=== PATIENT | female | born 1950 | race Caucasian/White ===

== ENCOUNTER 2016-06-23 22:13 | Emergency (ER) | payer MEDICARE, OTHER ==
--- NOTE | 2016-06-23 22:25 | EDM.PDOC ---
ED HPI GENERAL MEDICAL PROBLEM - General Chief Complaint: Gastrointestinal Problem Stated Complaint: ABDOMINAL PAIN Time Seen by Provider: 06/23/16 22:25 Source of Information: Reports: Patient - History of Present Illness INITIAL COMMENTS - FREE TEXT/NARRATIVE: HISTORY AND PHYSICAL: History of present illness: [] Patient complains of abdominal pain waxing and waning over the last 4-5 days some food association, she was pain free throughout the day after eating spaghetti and meat saw us tonight approximately an hour later pain returned she rated 10 out of 10 epigastric pain which is currently resolved 0/10 no current symptoms fever nausea vomiting chills sweats no chest pain shortness breath headache dizziness or palpitation no bowel or urine symptoms She has recently had colonoscopy and upper endoscopy secondary to bloating and increased flatus, both were negative/normal per patient Review of systems: As per history of present illness and below otherwise all systems reviewed and negative. Past medical history: As per history of present illness and as reviewed below otherwise noncontributory. Surgical history: As per history of present illness and as reviewed below otherwise noncontributory. Social history: No reported history of drug or alcohol abuse. Family history: As per history of present illness and as reviewed below otherwise noncontributory. Physical exam: HEENT: Atraumatic, normocephalic, pupils reactive, negative for conjunctival pallor or scleral icterus, mucous membranes moist, throat clear, neck supple, nontender, trachea midline. Lungs: Clear to auscultation, breath sounds equal bilaterally, chest nontender. Heart: S1S2, regular, negative for clicks, rubs, or JVD. Abdomen: Soft, nondistended, nontender. Negative for masses or hepatosplenomegaly. Negative for costovertebral tenderness. Pelvis: Stable nontender. Genitourinary: Deferred. Rectal: Deferred. Extremities: Atraumatic, negative for cords or calf pain. Neurovascular unremarkable. Neuro: Awake, alert, oriented. Cranial nerves II through XII unremarkable. Cerebellum unremarkable. Motor and sensory unremarkable throughout. Exam nonfocal. Diagnostics: [] Lab as below Ultrasound right upper quadrant Therapeutics: [] None Impression: [] Abdominal pain-resolved Patient asymptomatic at this time Suspicious for biliary colic Definitive disposition and diagnosis as appropriate pending reevaluation and review of above. Bilateral Lower Abdomen Pain Score (Numeric/FACES): 8 - Related Data Allergies Allergy/AdvReac Type Severity Reaction Status Date / Time Sulfa (Sulfonamide Allergy Other Verified 06/23/16 22:16 Antibiotics) Home Meds: Home Meds Ascorbic Acid [Vitamin C] 1,000 mg PO DAILY 06/23/16 [History] Calcium Carbonate [Calcium] 1 tab PO DAILY 06/23/16 [History] Ergocalciferol (Vitamin D2) [Vitamin D] 800 unit PO DAILY 06/23/16 [History] Magnesium 250 mg PO DAILY 06/23/16 [History] Past Medical History Endocrine/Metabolic History: Reports: Hypothyroidism Social & Family History - Tobacco Use Smoking Status *Q: Never Smoker - Caffeine Use Caffeine Use: Reports: Coffee, Tea - Recreational Drug Use Recreational Drug Use: No ED ROS GENERAL - Review of Systems Review Of Systems: ROS reveals no pertinent complaints other than HPI. ED EXAM, GENERAL - Physical Exam Exam: See Below Course - Vital Signs Last Recorded V/S: Last Vital Signs Temp 36.6 C 06/24/16 00:03 Pulse 74 06/24/16 00:03 Resp 16 06/24/16 00:03 BP 161/81 H 06/24/16 00:03 Pulse Ox 96 06/24/16 00:03 - Orders/Labs/Meds Orders: Active Orders 24 hr Category Date Time Status EKG Documentation Completion [RC] STAT Care 06/23/16 22:24 Active Abdomen Ltd [US] Stat Exams 06/23/16 22:35 Taken Labs: Laboratory Tests 06/23/16 06/23/16 06/23/16 Range/Units 22:20 22:20 22:20 WBC 7.46 (4.0-11.0) K/uL RBC 4.54 (4.30-5.90) M/uL Hgb 13.8 (12.0-16.0) g/dL Hct 40.8 (36.0-46.0) % MCV 89.9 (80.0-98.0) fL MCH 30.4 (27.0-32.0) pg MCHC 33.8 (31.0-37.0) g/dL RDW Std Deviation 43.9 (28.0-62.0) fl RDW Coeff of Duy 13 (11.0-15.0) % Plt Count 182 (150-400) K/uL MPV 10.20 (7.40-12.00) fL Neut % (Auto) 54.7 (48.0-80.0) % Lymph % (Auto) 22.9 (16.0-40.0) % Kenton % (Auto) 7.5 (0.0-15.0) % Eos % (Auto) 14.2 H (0.0-7.0) % Baso % (Auto) 0.7 (0.0-1.5) % Neut # (Auto) 4.1 (1.4-5.7) K/uL Lymph # (Auto) 1.7 (0.6-2.4) K/uL Kenton # (Auto) 0.6 (0.0-0.8) K/uL Eos # (Auto) 1.1 H (0.0-0.7) K/uL Baso # (Auto) 0.1 (0.0-0.1) K/uL Nucleated RBC % 0.0 /100WBC Nucleated RBCs # 0 K/uL Sodium 140 (136-146) mmol/L Potassium 3.4 L (3.5-5.1) mmol/L Chloride 102 (98-110) mmol/L Carbon Dioxide 27 (21-31) mmol/L BUN 23 (6.0-23.0) mg/dL Creatinine 0.9 (0.6-1.5) mg/dL Est Cr Clr Drug Dosing 54.53 mL/min Estimated GFR (MDRD) > 60.0 ml/min Glucose 114 H (60-110) mg/dL Calcium 9.5 (8.8-10.8) mg/dL Total Bilirubin 0.3 (0.1-1.5) mg/dL AST 20 (5-40) IU/L ALT 15 (8-54) IU/L Alkaline Phosphatase 63 (40-150) Troponin I < 0.10 (0.0-0.29) NG/ML Total Protein 7.5 (6.0-8.0) g/dL Albumin 4.0 (3.4-4.8) g/dL Globulin 3.5 (2.0-3.5) g/dL Albumin/Globulin Ratio 1.1 L (1.3-2.8) Amylase 75 (10-90) U/L Lipase 69 (7-80) U/L Urine Color Urine Appearance Urine pH (5.0-8.0) Ur Specific [place] (1.001-1.035) Urine Protein (NEGATIVE) mg/dL Urine Glucose (UA) (NEGATIVE) mg/dL Urine Ketones (NEGATIVE) mg/dL Urine Occult Blood (NEGATIVE) Urine Nitrite (NEGATIVE) Urine Bilirubin (NEGATIVE) Urine Urobilinogen (<2.0) EU/dL Ur Leukocyte Esterase (NEGATIVE) Urine RBC (0-2/HPF) Urine WBC (0-5/HPF) Ur Epithelial Cells (NONE-FEW) Urine Bacteria (NEGATIVE) 06/23/16 Range/Units 22:38 WBC (4.0-11.0) K/uL RBC (4.30-5.90) M/uL Hgb (12.0-16.0) g/dL Hct (36.0-46.0) % MCV (80.0-98.0) fL MCH (27.0-32.0) pg MCHC (31.0-37.0) g/dL RDW Std Deviation (28.0-62.0) fl RDW Coeff of Duy (11.0-15.0) % Plt Count (150-400) K/uL MPV (7.40-12.00) fL Neut % (Auto) (48.0-80.0) % Lymph % (Auto) (16.0-40.0) % Kenton % (Auto) (0.0-15.0) % Eos % (Auto) (0.0-7.0) % Baso % (Auto) (0.0-1.5) % Neut # (Auto) (1.4-5.7) K/uL Lymph # (Auto) (0.6-2.4) K/uL Kenton # (Auto) (0.0-0.8) K/uL Eos # (Auto) (0.0-0.7) K/uL Baso # (Auto) (0.0-0.1) K/uL Nucleated RBC % /100WBC Nucleated RBCs # K/uL Sodium (136-146) mmol/L Potassium (3.5-5.1) mmol/L Chloride (98-110) mmol/L Carbon Dioxide (21-31) mmol/L BUN (6.0-23.0) mg/dL Creatinine (0.6-1.5) mg/dL Est Cr Clr Drug Dosing mL/min Estimated GFR (MDRD) ml/min Glucose (60-110) mg/dL Calcium (8.8-10.8) mg/dL Total Bilirubin (0.1-1.5) mg/dL AST (5-40) IU/L ALT (8-54) IU/L Alkaline Phosphatase (40-150) Troponin I (0.0-0.29) NG/ML Total Protein (6.0-8.0) g/dL Albumin (3.4-4.8) g/dL Globulin (2.0-3.5) g/dL Albumin/Globulin Ratio (1.3-2.8) Amylase (10-90) U/L Lipase (7-80) U/L Urine Color YELLOW Urine Appearance CLEAR Urine pH 7.0 (5.0-8.0) Ur Specific [place] 1.010 (1.001-1.035) Urine Protein NEGATIVE (NEGATIVE) mg/dL Urine Glucose (UA) NEGATIVE (NEGATIVE) mg/dL Urine Ketones NEGATIVE (NEGATIVE) mg/dL Urine Occult Blood NEGATIVE (NEGATIVE) Urine Nitrite NEGATIVE (NEGATIVE) Urine Bilirubin NEGATIVE (NEGATIVE) Urine Urobilinogen 0.2 (<2.0) EU/dL Ur Leukocyte Esterase NEGATIVE (NEGATIVE) Urine RBC 0-1 (0-2/HPF) Urine WBC 0-2 (0-5/HPF) Ur Epithelial Cells RARE (NONE-FEW) Urine Bacteria RARE (NEGATIVE) Departure - Departure Time of Disposition: 00:05 Disposition: Home, Self-Care 01 Condition: good Clinical Impression: Abdominal pain Forms: ED Department Discharge Additional Instructions: Avoid greasy food Followup with primary care or return if symptoms persist or worsen May consider HIDA scan with primary care The following information is given to patients seen in the emergency department who are being discharged to home. This information is to outline your options for follow-up care. We provide all patients seen in our emergency department with a follow-up referral. The need for follow-up, as well as the timing and circumstances, are variable depending upon the specifics of your emergency department visit. If you don't have a primary care physician on staff, we will provide you with a referral. We always advise you to contact your personal physician following an emergency department visit to inform them of the circumstance of the visit and for follow-up with them and/or the need for any referrals to a consulting specialist. The emergency department will also refer you to a specialist when appropriate. This referral assures that you have the opportunity for follow-up care with a specialist. All of these measure are taken in an effort to provide you with optimal care, which includes your follow-up. Under all circumstances we always encourage you to contact your private physician who remains a resource for coordinating your care. When calling for follow-up care, please make the office aware that this follow-up is from your recent emergency room visit. If for any reason you are refused follow-up, please contact the [facility] emergency department at and asked to speak to the emergency department charge nurse. - My Orders Last 24 Hours: My Active Orders 06/23/16 22:24 EKG Documentation Completion [RC] STAT 06/23/16 22:35 Abdomen Ltd [US] Stat - Assessment/Plan Last 24 Hours: My Active Orders 06/23/16 22:24 EKG Documentation Completion [RC] STAT 06/23/16 22:35 Abdomen Ltd [US] Stat
[2016-06-23 23:03] LABS: CHLORIDE,CL 102 mmol/L (98-110); SODIUM,NA 140 mmol/L (136-146)
[2016-06-24 00:41] VITALS: BP 152/80
--- NOTE | 2016-06-24 12:54 | US ---
EXAM DATE: 06/23/16 PATIENT'S AGE: 65 Patient: ESTELA KIDD Facility: [place], [place] Site . Site : 1950 Study: US Abdomen [id number] 11:33:39 PM Ordering Physician: Zuri Antony Final Report: INDICATION: ABDOMINAL PAIN TECHNIQUE: Ultrasound abdomen limited. Sonographic images of the right upper quadrant were obtained using will-scale and color Doppler images. COMPARISON: None FINDINGS: Liver: Normal in size and echotexture. No masses. No intrahepatic biliary dilatation. Gallbladder: No stones or sludge. Partially contracted. No pericholecystic fluid. Common bile duct: 3 mm. Pancreas: Obscured. Right kidney: The imaged portion is unremarkable. Vasculature: Proximal abdominal aorta and IVC are normal. IMPRESSION: Unremarkable right upper quadrant ultrasound. Dictated by Dejuan Mcgregor MD @ 06/23/2016 11:52:59 PM Dictated by: Dejuan Mcgregor MD @ 06/23/2016 23:53:20 (Electronic Signature) Report Signed by Proxy and Original Signed Document filed in the Medical Record. [facility] HOSPITALMathew
== END 2016-06-24 00:41 | disposition home or self-care (01) ==
LOC: MW.ED 22:13
DX: R10.31 Right lower quadrant pain (principal); R10.32 Left lower quadrant pain; E03.9 Hypothyroidism, unspecified; Z79.899 Other long term (current) drug therapy; Z88.2 Allergy status to sulfonamides
CPT/HCPCS: 36415; 76705; 76705-26; 80053; 81001; 82150; 83690; 84484; 85025; 87804; 93005; 99282; 99284-25

== ENCOUNTER → 2016-07-08 | Outpatient (CLI) | payer MEDICARE, OTHER | LOC: MW.CHGS 08:00 | PROVIDERS: ATTEND Surgery | DX: K82.8 Other specified diseases of gallbladder (principal) | CPT/HCPCS: 99203 ==

== ENCOUNTER 2016-07-31 09:45 | Day surgery (SDC) | payer MEDICARE, OTHER ==
[~2016-07-31 09:45] MED LIST: Lactated Ringers 1,000 ML IV SCH; Lidocaine 2% 5 ML SDV ONE; Midazolam 1 MG/ML 2 ML SDV ONE; Ondansetron 4 MG/2 ML SDV ONE; Propofol 200 MG/20 ML SDV ONE; Rocuronium 10 MG/ML 10 ML Syringe ONE; Sodium Chloride 0.9% 10 ML Syringe FLUSH PRN; Sodium Chloride 0.9% 2.5 ML Syringe FLUSH PRN; ceFAZolin 2 GM in Premix Bag 1 BAG IV ONE
[2016-07-31] MEDS ORDERED: Bupivacaine 0.5% 30 ML SDV ONE (10:07)
[2016-07-31] MEDS ORDERED: Scopolamine 1.5 MG Transdermal Patch TRDERM PRN (10:17)
[2016-07-31] MEDS ORDERED: fentaNYL 250 MCG/5 ML SDV ONE (10:17)
--- NOTE | 2016-07-31 10:22 | PCM.PREANE ---
Preanesthetic Assessment - Anesthesia/Transfusion/Family Hx Anesthesia History: Prior Anesthesia Without Reaction Other Type of Anesthesia Reaction Comment: states she woke up during her tubal ligation Family History of Anesthesia Reaction: No Transfusion History: No Prior Transfusion(s) Intubation History: Unknown - Review of Systems General: No Symptoms Pulmonary: No Symptoms Cardiovascular: No Symptoms Gastrointestinal: Abdominal pain Neurological: No Symptoms Other: Reports: None - Physical Assessment O2 Sat by Pulse Oximetry: 100 Respiratory Rate: 16 Vital Signs: Last Vital Signs Temp 36.9 C 07/31/16 10:13 Pulse 81 07/31/16 10:13 Resp 16 07/31/16 10:13 BP 155/84 H 07/31/16 10:13 Pulse Ox 100 07/31/16 10:13 Height: 1.63 m Weight: 66.224 kg ASA Class: 2 Mental Status: Alert & Oriented x3 Airway Class: Mallampati = 2 Dentition: Reports: Normal Dentition, Bridge (permanent right lower) Thyro-Mental Finger Breadths: 3 Mouth Opening Finger Breadths: 3 ROM/Head Extension: Full Lungs: Clear to auscultation, Normal respiratory effort Cardiovascular: Regular Rate, Regular Rhythm - Allergies Allergies/Adverse Reactions: Allergies Allergy/AdvReac Type Severity Reaction Status Date / Time Sulfa (Sulfonamide Allergy Other Verified 06/23/16 22:16 Antibiotics) - Blood Blood Available: No - Anesthesia Plan Pre-Op Medication Ordered: None - Acknowledgements Anesthesia Type Planned: General Anesthesia Pt an Appropriate Candidate for the Planned Anesthesia: Yes Alternatives and Risks of Anesthesia Discussed w Pt/Guardian: Yes Pt/Guardian Understands and Agrees with Anesthesia Plan: Yes PreAnesthesia Questionnaire - Past Health History Medical/Surgical History: Denies Medical/Surgical History Gastrointestinal History: Reports: GERD, Other (see below) Other Gastrointestinal History: epigastric pain, biliary dyskinesia Genitourinary History: Reports: None Musculoskeletal History: Reports: Other (see below) Other Musculoskeletal History: states was diagnosed with fibromyalgia but later was found out to have Lyme disease Neurological History: Reports: Migraines Psychiatric History: Reports: Anxiety, Depression Other Psychiatric History: "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" Endocrine/Metabolic History: Reports: Hypothyroidism Dermatologic History: Reports: Other (see below) Other Dermatologic History: rash - Infectious Disease History Infectious Disease History: Reports: None - Past Surgical History Head Surgeries/Procedures: Reports: None GI Surgical History: Reports: Appendectomy, Colonoscopy, EGD Female Surgical History: Reports: Breast reduction, Hysterectomy, Tubal ligation - SUBSTANCE USE Smoking Status *Q: Never Smoker Recreational Drug Use History: No - HOME MEDS Home Medications: Home Meds Ascorbic Acid [Vitamin C] 1,000 mg PO DAILY 06/23/16 [History] Cholecalciferol (Vitamin D3) [Vitamin D3] 1,000 units PO DAILY 07/14/16 [History ] Clobetasol [Clobetasol 0.05%] 1 applic TOP ASDIRECTED 07/14/16 [History] Hydrocodone/Acetaminophen [Hydrocodon-Acetaminophn 10-325] 1 tab PO ASDIRECTED PRN 07/14/16 [History] Lactobacillus Acidophilus [Probiotic] 1 tab PO ASDIRECTED 07/14/16 [History] - CURRENT (IN HOUSE) MEDS Current Meds: Current Medications Lactated Ringer's (Ringers, Lactated) 1,000 mls @ 125 mls/hr IV ASDIRECTED SHERRIE Last Admin: 07/31/16 10:16 Dose: 125 mls/hr Scopolamine (Transderm-Scop) 1.5 mg TRDERM Q72H PRN PRN Reason: Nausea/Vomiting Sodium Chloride (Saline Flush) 10 ml FLUSH ASDIRECTED PRN PRN Reason: Keep Vein Open Sodium Chloride (Saline Flush) 2.5 ml FLUSH ASDIRECTED PRN PRN Reason: Keep Vein Open Discontinued Medications Bupivacaine HCl (Marcaine 0.5%) Confirm Administered Dose 30 ml .ROUTE .STK-MED ONE Stop: 07/31/16 10:08 Fentanyl (Sublimaze) Confirm Administered Dose 250 mcg .ROUTE .STK-MED ONE Stop: 07/31/16 10:18 Cefazolin Sodium/Dextrose 2 gm (/ Premix) 50 mls @ 100 mls/hr IV ONETIME ONE Stop: 07/14/16 10:00 Cefazolin Sodium/Dextrose 2 gm (/ Premix) 50 mls @ 100 mls/hr IV ONETIME ONE Stop: 07/30/16 18:23 Lidocaine (Xylocaine-Mpf 2%) Confirm Administered Dose 5 ml .ROUTE .STK-MED ONE Stop: 07/31/16 09:11 Midazolam HCl (Versed 1 Mg/Ml) Confirm Administered Dose 2 mg .ROUTE .STK-MED ONE Stop: 07/31/16 09:11 Ondansetron HCl (Zofran) Confirm Administered Dose 4 mg .ROUTE .STOcsc-MED ONE Stop: 07/31/16 09:11 Propofol (Diprivan 20 Ml) Confirm Administered Dose 200 mg .ROUTE .STOcsc-MED ONE Stop: 07/31/16 09:11 Rocuronium [place] (Zemuron) Confirm Administered Dose 100 mg .ROUTE .STOcsc-MED ONE Stop: 07/31/16 09:11
[2016-07-31] MEDS ORDERED: Scopolamine 1.5 MG Transdermal Patch ONE (10:43)
[2016-07-31] MEDS ORDERED: Dexamethasone 4 MG/ML 5 ML MDV ONE (10:43)
[2016-07-31] MEDS ORDERED: HYDROmorphone 2 MG/ML Syringe ONE (10:59)
[2016-07-31] MEDS ORDERED: Neostigmine Methylsulfate 1 MG/ML 5 ML Syringe ONE (11:18)
[2016-07-31] MEDS ORDERED: Ketorolac 30 MG/ML SDV ONE (11:19)
--- NOTE | 2016-07-31 11:54 | PCM.OPNOTE ---
- General Post-Op/Procedure Note Date of Surgery/Procedure: 07/31/16 Operative Procedure(s): Laparoscopic cholecystectomy Findings: Normal appearing gallbladder Pre Op Diagnosis: Biliary colic Post-Op Diagnosis: same Anesthesia Technique: MAC Primary Surgeon: Kavita Swanson Pathology: gallbladder Fluid Replacement, Intraop: 1,800 Output, Urine Amount: 75 EBL in mLs: 10 Condition: Good
[2016-07-31] MEDS ORDERED: Acetaminophen/oxyCODONE 325-10 MG Tab PO PRN (13:03)
[2016-07-31] MEDS ORDERED: Acetaminophen/oxyCODONE 325-10 MG Tab ONE (13:07)
--- NOTE | 2016-07-31 16:11 | PCM48HPAN ---
Post Anesthesia Note - EVALUATION WITHIN 48HRS OF ANESTHETIC Vital Signs in Normal Range: Yes Patient Participated in Evaluation: Yes Respiratory Function Stable: Yes Airway Patent: Yes Cardiovascular Function Stable: Yes Hydration Status Stable: Yes Pain Control Satisfactory: Yes Nausea and Vomiting Control Satisfactory: Yes Mental Status Recovered: Yes
[2016-07-31 16:19] VITALS: BP 137/82
--- NOTE | 2016-07-31 21:29 | OR ---
SURGEON: LUCIANA HASKINS MD DATE OF PROCEDURE: 07/31/2016 PREOPERATIVE DIAGNOSIS: Biliary colic. POSTOPERATIVE DIAGNOSIS: Biliary colic. PROCEDURE PERFORMED: Laparoscopic cholecystectomy. ANESTHESIA: General endotracheal anesthesia. FLUIDS: 1800 mL crystalloid. ESTIMATED BLOOD LOSS: 10 mL. URINE OUTPUT: 75 mL. FINDINGS: Normal-appearing gallbladder. COMPLICATIONS: None. INDICATIONS: The patient is a 65-year-old female, who presents with abdominal pain. She has undergone an extensive workup, including EGD and colonoscopy as well as right upper quadrant ultrasound all of which were normal. The patient had a HIDA scan performed that showed a decreased ejection fraction. Given the constellation of her symptoms, it was felt that her abdominal pain was due to biliary colic. The patient and I discussed removal of her gallbladder as a treatment option. We discussed both the laparoscopic and open cholecystectomy procedure. We discussed the expected perioperative course. Should I be unable to perform the procedure safely laparoscopically, I would be converting it to open. We discussed the risks, including bleeding, infection, or damage to surrounding structures. The patient verbalized understanding and wished to proceed. PROCEDURE IN DETAIL: The patient was brought into the operating room and placed on the operating room table in supine position. A time-out was completed verifying the patient's name, age, date of , allergies, and procedure to be performed. General endotracheal anesthesia was then induced. A Lee catheter was placed and the left arm was tucked at the patient's side. The patient's abdomen was then prepped and draped in the usual standard fashion. I used 0.5% Marcaine to anesthetize all of my incision sites during the case. A 3 cm infraumbilical incision was made along the midline. I then used cautery to dissect down to the subcutaneous fat. S retractors were used to dissect down to the level of fascia. The fascia was grasped with 2 Viridiana's and incised using a Metzenbaum scissors. I then grasped the peritoneum using a tonsil and elevated that. It was sharply incised with the Metzenbaum scissors thereby gaining access into the abdomen. A 12 mm blunt tip trocar was then entered into abdomen and the abdomen insufflated to a pressure of 13 mmHg. A 5 mm 30 degree scope was then placed through the trocar in the area underneath and trocar placement was inspected for any damage. No damage was noted to surrounding structures. Three more 5-mm ports were placed under direct visualization in the following locations; right epigastric area, right subcostal margin along the midclavicular line, and the right flank. I then grasped the top of the gallbladder using the atraumatic grasper through my right lateral port and lifted the gallbladder above the dome of the liver. This exposed the infundibulum adequately. I then incised the peritoneum overlying the infundibulum and used blunt dissection to dissect out the cystic artery and duct. Prior to doing anything with these structures, I dissected the proximal half of the gallbladder off the gallbladder fossa. This helped me to achieve my critical view. I then doubly clipped and ligated the cystic duct and artery. The gallbladder was then dissected further off the gallbladder fossa. The gallbladder was then placed in an EndoCatch bag and removed through the infraumbilical port site. The 12 mm port was then replaced back into the abdomen and I inspected the liver bed for any bleeding. There was some bleeding along the gallbladder fossa mainly centered along the liver edge. Using cautery and Endo Avitene coating product, I was able to achieve hemostasis. The abdomen was irrigated with 1 L of normal saline until it ran clear. The liver bed was reinspected for hemostasis and hemostasis was felt to be achieved. A 5-mm ports were then removed under direct visualization and the abdomen allowed to desufflate. The 12 mm port site was then removed. The fascia at the 12 mm port site was closed with [id number] Vicryl sutures. The overlying tissues were closed with interrupted 3-0 Vicryl and the subcutaneous fat and a running 4-0 Monocryl suture to close the skin. The 5-mm port sites were then closed using interrupted 4-O Monocryl. Steri-Strips and sterile dressings were applied. All counts were complete and correct at the end of the case. The patient was awoken and taken to the PACU in stable condition. MOIZ ALVAREZ /[id number]
== END 2016-07-31 15:50 | disposition home or self-care (01) ==
LOC: MW.SDS 09:45
PROVIDERS: ATTEND Surgery
PROC: 0FT44ZZ Resection of Gallbladder, Percutaneous Endoscopic Approach (ICD-10-PCS; principal; 2016-07-31)
DX: K81.1 Chronic cholecystitis (principal); Z88.1 Allergy status to other antibiotic agents; Z88.2 Allergy status to sulfonamides; Z91.040 Latex allergy status; Z79.899 Other long term (current) drug therapy; Z98.51 Tubal ligation status; Z90.49 Acquired absence of other specified parts of digestive tract; Z90.710 Acquired absence of both cervix and uterus; Z98.890 Other specified postprocedural states
CPT/HCPCS: 47562; A9270; J1100; J1170; J2250; J2405; J3010; J7120; 00790; 88304; J1885; J2704